=== PATIENT | female | born 1980 | race Two or more races ===

== ENCOUNTER 2019-03-03 06:20 | Emergency (ER) | payer OTHER ==
[~2019-03-03] VITALS: Ht 170.2 cm; Wt 68.0 kg
[2019-03-03] MEDS ORDERED: MORPHINE SULFATE 10 MG/ML VIAL. ONE (06:35)
[2019-03-03] MEDS ORDERED: MORPHINE SULFATE 10 MG/ML VIAL. IV ONE (06:45)
[2019-03-03] MEDS ORDERED: MORPHINE SULFATE 4 MG/ML VIAL. IV ONE (07:00)
--- NOTE | 2019-03-03 07:27 | PHYS DOC ---
Past Medical History Past Medical History: Kidney Stone Past Surgical History: Alcohol Use: Occasionally Drug Use: None Adult General Chief Complaint Chief Complaint: FLANK PAIN HPI HPI Patient is a 38 year old female with history of kidney stones who presents with acute onset left flank pain awaking her from sleep 2 hours prior to ED arrival. Patient reports nausea, sweats. No urinary frequency urgency hematuria or dysuria. No fever chills. No other acute symptoms or complaints. Last menstrual period was 3 weeks ago.[] Review of Systems Review of Systems Review of symptoms as per history of present illness. All other review symptoms are negative. All other systems were reviewed and found to be within normal limits, except as documented in this note. Current Medications Current Medications Current Medications Medications (Trade) Dose Ordered Sig/[place] Start Time Stop Time Status Last Admin Dose Admin Ketorolac Tromethamine (Toradol 30mg Vial) 30 mg 1X ONCE 03/03/19 07:45 03/03/19 07:46 DC 03/03/19 07:39 30 MG Morphine Sulfate (Morphine Sulfate) 4 mg 1X ONCE 03/03/19 07:00 03/03/19 07:01 DC 03/03/19 07:16 4 MG Sodium Chloride 1,000 ml @ 1,000 mls/hr 1X ONCE 03/03/19 07:30 03/03/19 08:29 DC 03/03/19 07:26 1,000 MLS/HR Allergies Allergies Allergies Coded Allergies Type Severity Reaction Last Updated Verified No Known Drug Allergies 03/03/19 No Physical Exam Physical Exam Constitutional: Well developed, well nourished, moderate discomfort secondary to pain.[] HENT: Normocephalic, atraumatic, bilateral external ears normal, oropharynx moist, nose normal. [] Eyes: PERRLA, EOMI, conjunctiva normal, no discharge. [] Neck: Normal range of motion, no tenderness. [] Cardiovascular:Heart rate regular rhythm, no murmur [] Lungs & Thorax: Bilateral breath sounds clear to auscultation [] Abdomen: Bowel sounds normal, soft. [] Skin: Warm, dry, no erythema, no rash. [] Back: No tenderness, L CVA tenderness. [] Extremities: No tenderness, no edema. [] Neurologic: Alert and oriented X 3, normal motor function, normal sensory func tion, no focal deficits noted. [] Psychologic: Affect normal, judgement normal, mood normal. [] Current Patient Data Vital Signs Vital Signs Date Time Temp Pulse Resp B/P (MAP) Pulse Ox O2 Delivery O2 Flow Rate FiO2 03/03/19 08:15 80 16 131/82 (98) 99 Room Air 03/03/19 06:20 97.6 97.6 Lab Values Laboratory Tests Test 03/03/19 06:28 03/03/19 08:42 POC Urine HCG, Qualitative Hcg negative (Negative) Urine Collection Type Unknown Urine Color Yellow Urine Clarity Clear Urine pH 7.5 Urine Specific [place] 1.020 Urine Protein Negative mg/dL (NEG-TRACE) Urine Glucose (UA) Negative mg/dL (NEG) Urine Ketones (Stick) Negative mg/dL (NEG) Urine Blood Large (NEG) Urine Nitrite Negative (NEG) Urine Bilirubin Negative (NEG) Urine Urobilinogen Dipstick 0.2 mg/dL (0.2 mg/dL) Urine Leukocyte Esterase Negative (NEG) Urine RBC 20-40 /HPF (0-2) Urine WBC 1-4 /HPF (0-4) Urine Squamous Epithelial Cells Mod /LPF Urine Bacteria Few /HPF (0-FEW) Urine Mucus Mod /LPF EKG EKG [] Radiology/Procedures Radiology/Procedures CT abdomen/pelvis w/o contrast: 5 mm L UVJ stone with moderate [id number] [] Course & Med Decision Making Course & Med Decision Making Pertinent Labs and Imaging studies reviewed. (See chart for details) [Symptoms improved with tx. Will continue supportive with close PCP f/u for urology referral. Return precautions reviewed. Patient verbalized understanding and agreement with discharge instructions at time of discharge. ] Dragon Disclaimer Dragon Disclaimer This electronic medical record was generated, in whole or in part, using a voice recognition dictation system. Departure Departure Impression: Primary Impression: Acute left flank pain Additional Impression: Ureteral stone Disposition: 01 HOME, SELF-CARE Condition: IMPROVED Referrals: NO PCP (PCP) Patient Instructions: Kidney Stones, [id number] Additional Instructions: Please increase fluids and strain urine for stone. Take ibuprofen for pain medications as directed. Follow-up with your PCP in 2-3 days for reevaluation and for outpatient urology referral if symptoms persist. Return to the ED if new or worsening symptoms. Scripts Ondansetron Hcl (ZOFRAN) 4 Mg Tablet 1 TAB PO Q6HRS, #10 TAB 0 Refills Prov: FRANCHESKA RAVI DO 03/03/19 Tamsulosin Hcl (FLOMAX) 0.4 Mg Cap.er.24h 1 CAP PO DAILY, #7 CAP 11 Refills Prov: FRANCHESKA RAVI DO 03/03/19 Hydrocodone Bit/Acetaminophen (HYDROCODONE-APAP 5-325 ) 1 Tab Tablet 1 TAB PO PRN Q6HRS PRN for PAIN, #20 TAB 0 Refills Prov: FRANCHESKA RAVI DO 03/03/19 Problem Qualifiers FRANCHESKA RAVI DO Mar 03, 2019 07:27
[2019-03-03] MEDS ORDERED: IV NORMAL SALINE 1000ML BAG 1,000 ML IV ONE (07:30)
[2019-03-03] MEDS ORDERED: KETOROLAC 30 MG/ML VIAL. IVP ONE (07:45)
--- NOTE | 2019-03-03 07:45 | RAD ---
Examination: CT ABDOMEN PELVIS WO CONTRAST History: Left flank pain Comparison/Correlation: None Findings: Axial images of the abdomen and pelvis were obtained without contrast. Sagittal and coronal reformatted images were provided. Lung bases are clear. Liver, spleen, pancreas, adrenal glands, and right kidney are unremarkable. Gallbladder fossa is unremarkable. Left hydronephrosis and hydroureter due to a 0.43 cm diameter ureterovesical junction calculus noted. No radiopaque renal calculi. Urinary bladder is decompressed. No extraluminal gas. No bowel obstruction. Appendix is unremarkable. Moderate quantity of stool in the colon noted. Uterus is grossly unremarkable. Bony structures unremarkable. No ascites or pelvic free fluid. No enlarged abdominal or pelvic lymph nodes. Impression: Left ureterovesical junction obstructing calculus with associated hydronephrosis and hydroureter. PQRS Compliance Statement: One or more of the following individualized dose reduction techniques were utilized for this examination: 1. Automated exposure control 2. Adjustment of the mA and/or kV according to patient size 3. Use of iterative reconstruction technique Electronically signed by: Anthony Newberry MD (03/03/2019 7:42 AM) [facility]
[2019-03-03 08:15] VITALS: BP 131/82
[2019-03-03 09:01] LABS: BILIRUBIN,URINE NEGATIVE (NEG); CLARITY,URINE CLEAR; COLOR,URINE YELLOW; NITRITE,URINE NEGATIVE (NEG); PH,URINE 7.5; PROTEIN,URINE NEGATIVE (NEG-TRACE); UROBILINOGEN,URINE 0.2 mg/dL (0.2 mg/dL)
[2019-03-03 09:06] LABS: RBC,URINE 20-40 /HPF (0-2); SQUAMOUS EPITHELIAL CELL,UR MOD /LPF
[2019-03-03 09:07] LABS: BACTERIA,URINE FEW /HPF (0-FEW)
[2019-03-03] MEDS ORDERED: HYDR-2761 PO (09:07)
[2019-03-03] MEDS ORDERED: TAMS0.4C97 PO (09:07)
[2019-03-03] MEDS ORDERED: ONDA4TAB7 PO (09:07)
== END 2019-03-03 09:32 | disposition home or self-care (01) ==
LOC: ER 06:20
DX: N13.2 Hydronephrosis with renal and ureteral calculous obstruction (principal)
CPT/HCPCS: 74176; 81001; 81025; 96374; 96375; 96376; 99285; J1885; J2270; J7030